=== PATIENT | female | born 1995 | race Caucasian/White ===

== ENCOUNTER 2020-09-30 08:27 | Emergency (ER) | payer MEDICAID, OTHER ==
[~2020-09-30] VITALS: Ht 157.5 cm; Wt 57.2 kg
[~2020-09-30 08:27] MED LIST: BIOT5CAP PO
[2020-09-30 08:31] VITALS: BP 111/69
[2020-09-30] MEDS ORDERED: ACETAMINOPHEN 325 MG TAB PO ONE (08:40)
[2020-09-30] MEDS ORDERED: NAPR-1704 PO (09:21)
[2020-09-30 09:32] VITALS: BP 111/69
== END 2020-09-30 09:32 | disposition home or self-care (01) ==
LOC: MED 08:27
DX: S49.81XA Other specified injuries of right shoulder and upper arm, initial encounter (principal); Z79.899 Other long term (current) drug therapy; W01.0XXA Fall on same level from slipping, tripping and stumbling without subsequent striking against object, initial encounter; Y93.89 Activity, other specified; Y92.89 Other specified places as the place of occurrence of the external cause; Y99.8 Other external cause status
CPT/HCPCS: 73000; 73030; 81002; 81025; 99284

== ENCOUNTER 2023-06-21 14:34 | Emergency (ER) | payer MEDICAID ==
[~2023-06-21] VITALS: Ht 157.5 cm; Wt 54.4 kg
[~2023-06-21 14:34] MED LIST changes: +NAPR-1704 PO
[2023-06-21 14:55] VITALS: BP 118/80; PULSE 89; RESP 18; TEMP 98.4; O2SAT 97
[2023-06-21] MEDS: ALUMINUM HYD/MAG/SIMETHICONE 30 ML UDC PO ONE (15:36)
[2023-06-21 15:52] LABS: BASOPHILS # (AUTO) 0.1 K/uL (0.00-0.22); EOSINOPHILS # (AUTO) 0.1 K/uL (0-0.4); EOSINOPHILS % (AUTO) 1.8 % (0.0-4.0); HEMATOCRIT 36.7 % (36-48); HEMOGLOBIN 12.4 g/dL (12.0-16.0); LYMPHOCYTES # (AUTO) 1.8 K/uL (2.5-16.5); LYMPHOCYTES % (AUTO) 36.1 % (20.5-51.1); MEAN CORPUSCULAR HEMOGLOBIN 30 pg (27-31); MEAN CORPUSCULAR HGB CONC 34 g/dL (33-37); MEAN CORPUSCULAR VOLUME 89.5 fL (80-94); MONOCYTES # (AUTO) 0.5 K/uL (0.8-1.0); MONOCYTES % (AUTO) 10.5 % (1.7-9.3); NEUTROPHILS # (AUTO) 2.6 K/uL (1.8-7.7); NEUTROPHILS % (AUTO) 50.6 % (42.2-75.2); PLATELET COUNT (AUTO) 185 K/uL (140-450); RED CELL DISTRIBUTION WIDTH 13.2 % (11.6-13.7); WHITE BLOOD COUNT (AUTO) 5.1 K/uL (4.8-10.8)
[2023-06-21 16:00] LABS: ANION GAP 13.5 (8-16); CALCIUM 8.7 mg/dL (8.5-10.1); CARBON DIOXIDE 27.2 mmol/L (21-32); CREATININE 0.6 mg/dL (0.6-1.3); POTASSIUM 3.7 mmol/L (3.5-5.1)
[2023-06-21 16:04] LABS: ALBUMIN 3.4 g/dL (3.4-5.0); BILIRUBIN,DIRECT 0.2 mg/dL (0.0-0.3); TOTAL BILIRUBIN 0.5 mg/dL (0.0-1.0); TOTAL PROTEIN, SERUM 7.6 g/dL (6.4-8.2)
[2023-06-21 16:56] VITALS: BP 118/80; PULSE 89; RESP 18; TEMP 98.4; O2SAT 97
== END 2023-06-21 16:56 | disposition home or self-care (01) ==
LOC: MED 14:34
DX: R10.13 Epigastric pain (principal); R11.10 Vomiting, unspecified; K92.1 Melena; Z79.899 Other long term (current) drug therapy
CPT/HCPCS: 36415; 80048; 80076; 81002; 81025; 83690; 85025; 99283